=== PATIENT | female | born 1985 | race Caucasian/White ===

== ENCOUNTER 2020-05-22 21:38 | Emergency (ER) | payer OTHER ==
[~2020-05-22] VITALS: Ht 162.6 cm; Wt 95.3 kg
[~2020-05-22 21:38] MED LIST: PREN-380 PO; PRENATAL VITS.
[2020-05-22 21:40] VITALS: BP 147/93
[2020-05-22] MEDS ORDERED: KETOROLAC 30 MG/ML VIAL IM ONE (22:00)
[2020-05-22 22:20] VITALS: BP 147/93
== END 2020-05-22 22:08 | disposition home or self-care (01) ==
LOC: MED 21:38
DX: S29.011A Strain of muscle and tendon of front wall of thorax, initial encounter (principal); T14.8XXA Other injury of unspecified body region, initial encounter; Z98.51 Tubal ligation status; Z79.899 Other long term (current) drug therapy; X50.0XXA Overexertion from strenuous movement or load, initial encounter; Y93.89 Activity, other specified; Y92.89 Other specified places as the place of occurrence of the external cause; Y99.8 Other external cause status
CPT/HCPCS: 96372; 99283; J1885